=== PATIENT | male | born 1950 | race Caucasian/White ===

== ENCOUNTER 2016-07-26 13:18 | Outpatient (CLI) | payer MEDICARE, OTHER ==
[~2016-07-26] VITALS: Ht 185.4 cm; Wt 136.6 kg
[2016-07-26 13:33] VITALS: BP 110/63
[2016-07-26] MEDS ORDERED: OMEG-131 PO (13:46)
[2016-07-26] MEDS ORDERED: DOXA4TAB2 PO (13:46)
[2016-07-26] MEDS ORDERED: MULT-851 PO (13:46)
[2016-07-26] MEDS ORDERED: ASPI-586 PO (13:46)
[2016-07-26] MEDS ORDERED: GARL10002 PO (13:46)
[2016-07-26] MEDS ORDERED: BNZ40T PO (13:46)
[2016-07-26] MEDS ORDERED: CAYE450C4 PO (13:46)
[2016-07-26] MEDS ORDERED: UBID100C17 PO (13:46)
[2016-07-26] MEDS ORDERED: AMLO10TA2 PO (13:46)
[2016-07-26] MEDS ORDERED: ATOR40TA70 PO (13:46)
[2016-07-26] MEDS ORDERED: SPIR25TA3 PO (13:46)
[2016-07-26] MEDS ORDERED: ASCO-262 PO (13:46)
[2016-07-26] MEDS ORDERED: LACT1CAP74 PO (13:46)
[2016-07-26] MEDS ORDERED: IRON18TA PO (13:46)
[2016-07-26] MEDS ORDERED: LECI12002 PO (13:46)
[2016-07-26] MEDS ORDERED: POTA20TA8 PO (13:46)
[2016-07-26] MEDS ORDERED: TURM500C4 PO (13:46)
[2016-07-26] MEDS ORDERED: LUTE20TA PO (13:46)
[2016-07-26] MEDS ORDERED: CALC-79 PO (13:46)
== END 2016-07-26 13:55 | disposition home or self-care (01) ==
LOC: PREOP 13:18
PROVIDERS: ATTEND Urology
DX: Z01.818 Encounter for other preprocedural examination (principal); Z11.2 Encounter for screening for other bacterial diseases; N20.1 Calculus of ureter
CPT/HCPCS: 87081

== ENCOUNTER → 2016-07-26 | Outpatient (CLI) | payer MEDICARE, OTHER ==
[~2016-07-26] MED LIST: AMLO10TA2 PO; ASCO-262 PO; ASPI-586 PO; ATOR40TA70 PO; BNZ40T PO; CALC-79 PO; CAYE450C4 PO; CIPR-225 PO; DOXA4TAB2 PO; GARL10002 PO; HYDR-3875 PO; HYDR-3876 PO; IRON18TA PO; LACT1CAP74 PO; LECI12002 PO; LEVO500T2 PO; LUTE20TA PO; MULT-851 PO; OMEG-131 PO; PHEN-640 PO; POTA20TA8 PO; SPIR25TA3 PO; TAMS0.4C98 PO; TURM500C4 PO; UBID100C17 PO
--- OUTSIDE RECORDS SUMMARY | 2016-07-26 09:41 | XMS REPORT ---
Author Author [facility] Organization [facility] Address [address] [place] [id number] Phone [phone] Summary purpose CCDA Sent to [facility] Chief Complaint and Reason for Visit Admit Diagnosis 1 JOINT PAIN-PELVIS Problem list No authorized problems tracked for continuity of care are available for this visit. Encounters No authorized problems tracked for encounter diagnoses are available for this visit. Medications No home medications recorded for this patient visit Allergies, adverse reactions, alerts No allergy information is available for this patient. Immunizations No immunizations recorded for this patient visit Relevant diagnostic tests and/or laboratory data No authorized results are available for this patient visit History of procedures Procedure Code Code Type Description Date Performed Performing Physician 50034 CPT-4 X-RAY EXAM OF HIP 04-08-2014 JARETH FRANK 76805 CPT-4 X-RAY EXAM OF PELVIS 04-08-2014 JARETH FRANK Functional status No functional or cognitive status observations are available for this visit. Vital signs No authorized vital signs are available for this visit. Social history No Social History or smoking status observations were recorded for this visit. ( Unknown if ever smoked.) Treatment Plan No treatment plan text is available for this visit. Hospital discharge instructions No discharge instruction text is available for this visit.
--- NOTE | 2016-07-26 10:58 | Diagnostic Imaging Report ---
INDICATION: Right flank pain. EXAMINATION: KUB. FINDINGS: There are degenerative changes in the lumbar spine. The bowel gas pattern is normal. There are no radiopaque calculi seen. The patient has had left hip arthroplasty. IMPRESSION: No acute abnormalities in the abdomen. Dictated by: Dictated on workstation # [id number]
== END ==
LOC: RAD 09:38
PROVIDERS: ATTEND Urology
DX: N20.1 Calculus of ureter (principal)
CPT/HCPCS: 74000

== ENCOUNTER 2016-08-03 07:00 | Day surgery (SDC) | payer MEDICARE, OTHER ==
[~2016-08-03] VITALS: Ht 185.4 cm; Wt 136.6 kg
[2016-08-03 07:00] VITALS: BP 148/79
[~2016-08-03 07:00] MED LIST changes: -CIPR-225 PO; -HYDR-3875 PO; -HYDR-3876 PO; -LEVO500T2 PO; -PHEN-640 PO; -TAMS0.4C98 PO
[2016-08-03] MEDS ORDERED: CATHETER FLUSH 10 ML SYR IV PRN (07:30)
[2016-08-03] MEDS ORDERED: cefTRIAXone 1 GM/NS 50 ML IVPB IV ONE ×2 (07:30)
--- NOTE | 2016-08-03 07:44 | Diagnostic Imaging Report ---
INDICATION: Pre-left ESWL. COMPARISON STUDIES: KUB from July 26. FINDINGS: Several small calculi are seen overlying the left kidney. Largest one measures just over 5 mm. Some degenerative changes present in the spine and right hip. Postoperative changes are present in the left hip. Bowel gas pattern appears normal. IMPRESSION: There are calcifications overlying the left kidney measuring up to 5 mm. Dictated by: Dictated on workstation # [id number]
[2016-08-03] MEDS: LACTATED RINGERS 1,000 ML IV PRN ×2 (07:45→09:29)
--- NOTE | 2016-08-03 07:56 | Progress Note-Pre Operative ---
Pre-Operative Progress Note H&P Reviewed The H&P was reviewed, patient examined and no changes noted. Date H&P Reviewed: Aug 03, 2016 Time H&P Reviewed: 07:56 Pre-Operative Diagnosis: LT UPJ STONE TIGRE LARES MD Aug 03, 2016 7:56 am
--- NOTE | 2016-08-03 07:57 | Progress Note-Post Operative ---
Post-Operative Progess Note Surgeon (s)/Measurement Psychologist (s) Surgeon TIGRE LARES MD Measurement Psychologist: N/A Pre-Operative Diagnosis LT UPJ STONE Post-Operative Diagnosis LT CALYCEAL STONE Post-Op Procedure Note Date of Procedure: Aug 03, 2016 Name of Procedure Performed: CYSTOSCOPY, LT RETROGRADE UROGRAM, AND LT ESWL Description of the Procedure: ABOVE Findings of the Procedure LT UPJ STONE MIGRATED TO MID CALYX Anesthesia Type GENERAL Estimated blood loss (mL): N/A Specimen(s) collected/removed N/A TIGRE LARES MD Aug 03, 2016 7:57 am
--- NOTE | 2016-08-03 07:59 | Discharge Inst-Urology ---
Discharge Inst-Urology Discharge Medications New, Converted, or Re-newed RX: RX on Chart Patient Instructions/Follow Up Plan Please make appointment to been seen in office TUESDAY 08/15. KUB PRIOR TO IT KUB ON WAY HOME POST ESWL INSTRUCTIONS Increase oral fluids for 48 hours and then as needed. Diet and Activity as tolerated. If questions or concerns contact your physician Or seek help at emergency department. TIGRE LARES MD Aug 03, 2016 7:59 am
[2016-08-03] MEDS ORDERED: MIDAZOLAM 2 MG/2 ML (VERSED) VIAL ONE (08:03)
[2016-08-03] MEDS ORDERED: LIDOCAINE PF 2% 10 ML (XYLOCAINE) AMP ONE (08:03)
[2016-08-03] MEDS ORDERED: fentaNYL INJECTION 100 MCG/2 ML AMP ONE (08:03)
[2016-08-03] MEDS ORDERED: ROCURONIUM 50 MG/5 ML (ZEMURON) VIAL IV ONE (08:03)
[2016-08-03] MEDS ORDERED: proPOfol 200 MG/20 ML (DIPRIVAN) VIAL IV ONE ×2 (08:03→11:07)
[2016-08-03] MEDS ORDERED: DEXAMETHASONE PF 10 MG/ML (DECADRON) VIAL ONE (08:03)
[2016-08-03] MEDS ORDERED: SEVOFLURANE (ULTANE) 15 ML INHAL SOLN ONE ×2 (08:03→11:07)
[2016-08-03] MEDS ORDERED: ONDANSETRON 4 MG/2 ML (SDV) Z0FRAN ONE (08:03)
[2016-08-03] MEDS ORDERED: LACTATED RINGERS 1,000 ML IV ONE ×2 (08:03→11:07)
[2016-08-03] MEDS ORDERED: FUROSEMIDE 40 MG/4 ML INJ (LASIX) ONE (08:53)
[2016-08-03] MEDS ORDERED: KETOROLAC 30 MG/ML VIAL ONE (08:53)
[2016-08-03 10:40] VITALS: BP 154/96
[2016-08-03 11:10] VITALS: BP 168/90
[2016-08-03 11:45] VITALS: BP 147/73
[2016-08-03] MEDS ORDERED: PHEN-640 PO (12:03)
[2016-08-03] MEDS ORDERED: TAMS0.4C98 PO (12:03)
[2016-08-03] MEDS ORDERED: LEVO500T2 PO (12:03)
[2016-08-03] MEDS ORDERED: HYDR-3876 PO (12:03)
[2016-08-03 12:35] VITALS: BP 147/73
--- NOTE | 2016-08-03 13:54 | Diagnostic Imaging Report ---
INDICATION: Postop ESWL. COMPARISON: 08/03/2016. FINDINGS: There are some small radiopacities and calcifications projecting over the left kidney. Previously, the largest of these measured 5.2 mm. Now the largest is about 3 mm and may be partially fragmented. Evaluation is limited by the unprepped stool-containing overlying bowel. Pelvic phleboliths unchanged. IMPRESSION: Apparent fragmentation of left renal stone burden. No adverse development apparent. Dictated by: Dictated on workstation # [id number]
--- NOTE | 2016-08-04 08:25 | OPERATIVE REPORT ---
PROCEDURE PHYSICIAN: TIGRE LARES DATE OF PROCEDURE: 08/03/2016 PREOPERATIVE DIAGNOSIS: Left UPJ stone. POSTOPERATIVE DIAGNOSIS: Left calyceal stone. OPERATION PERFORMED: 1. Cystoscopy. 2. Left retrograde urogram. 3. Left ESWL. SURGEON: Dr. Lares. ANESTHESIA: General. COMPLICATIONS: None. PROCEDURE: Under satisfactory general anesthesia, the patient in lithotomy position on the cysto table, the genitalia were prepped and draped in usual sterile fashion. A 23-Libyan cystoscope was introduced under vision. 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 The prostate was enlarged causing bladder neck obstruction and trabeculation and displacement of the ureter upward and laterally. Using the Foroblique lens, I, passed a 5-Libyan ureteral catheter into the right ureteral orifice, passed it all the way up to the left renal pelvis with no obstruction whatsoever, guided fluoroscopically. I injected contrast and I could see the stone with a filling defect into the mid calyx where the stone apparently migrated from the UPJ. We left the ureteral catheter in, moved the patient to the ESWL table and with some injection contrast, we were able to fragment the stone with a total of 3000 shocks at KV of 5. The patient received 40 mg of Lasix and 30 mg of Toradol IV at the end of the procedure. He tolerated the procedure and anesthesia well and was sent to the recovery room in stable condition. Job ID: [id number] Dictated Date: 08/03/2016 09:33:41 Warehouse Team Member Date: 08/03/2016 21:46:32 / home
--- OUTSIDE RECORDS SUMMARY | 2016-08-21 05:51 | XMS REPORT ---
Author Author [facility] Medical Staff Organization [facility] Address [address] [place] [place] [id number] Phone [phone] Summary purpose CCDA Sent to [facility] Chief Complaint and Reason for Visit Admit [...] Code Type Description Date Performed Performing Physician 88888 CPT-4 X-RAY EXAM OF HIP 04-08-2014 JARETH FRANK 29170 CPT-4 X-RAY EXAM OF PELVIS 04-08-2014 JARETH [...]
--- OUTSIDE RECORDS SUMMARY | 2016-08-21 05:51 | XMS REPORT ---
Author Author [facility] Medical Staff Organization [facility] Address [address] [place] [id number] Phone [phone] Summary purpose CCDA Sent to [facility] Chief Complaint and Reason for Visit No authorized Reason for Visit (Admitting Diagnosis) is available for this visit. Problem list No authorized problems tracked for [...] for this patient visit History of procedures No procedures recorded for this patient visit. Functional status No functional or cognitive status [...]
--- OUTSIDE RECORDS SUMMARY | 2016-08-21 05:51 | XMS REPORT | Continuity of Care Document ---
Author Author [facility] Address Unknown Phone Unavailable Allergies Medications Problems Procedures Results Encounters ACCT No. Visit Date/Time Discharge Status Pt. Type Provider Facility Loc./Unit Complaint [id number] 07/31/2014 18:44:25 07/31/2014 23: 59:59 CLS Outpatient Ivone Mancuso
== END 2016-08-03 12:35 | disposition home or self-care (01) ==
LOC: DELPENDDIS → SDC 07:00
PROVIDERS: ATTEND Urology
DX: N20.0 Calculus of kidney (principal)
CPT/HCPCS: 74000

== ENCOUNTER → 2016-08-15 | Outpatient (CLI) | payer MEDICARE, OTHER ==
[~2016-08-15] MED LIST changes: +CIPR-225 PO; +HYDR-3875 PO; +HYDR-3876 PO; +LEVO500T2 PO; +PHEN-640 PO; +TAMS0.4C98 PO
--- NOTE | 2016-08-15 15:22 | Diagnostic Imaging Report ---
EXAMINATION: KUB. INDICATION: Left ureteric stone. FINDINGS: There are up to 5 mm calcific fragments seen in the left flank. There is a 1 cm hyperdensity projecting over the transverse process of L4 on the left side raising the question of a ureteric stone, possibly from prior fragmentation of left kidney stones. The pelvic calcifications are likely phleboliths. A left hip prosthesis is seen. IMPRESSION: 1. There are left flank calcifications measuring up to 5 mm, compatible with left kidney stones. 2. Density projecting over the left L4 transverse process raises the question of a possible left ureteric stone but is not definitive. Followup exams or CT would be helpful as clinically indicated. Dictated by: Dictated on workstation # [id number]
== END ==
LOC: RAD 13:53
PROVIDERS: ATTEND Urology
DX: N20.0 Calculus of kidney (principal); Z98.890 Other specified postprocedural states
CPT/HCPCS: 74000

== ENCOUNTER → 2016-09-01 | Outpatient (CLI) | payer MEDICARE, OTHER ==
[~2016-09-01] MED LIST changes: +CATHETER FLUSH 10 ML SYR IV PRN; +IOHEXOL 350 MG/ML 100 ML (OMNIPAQUE 350) VIAL IV ONE; +NS 100 ML (IVPB) BAG IV ONE
--- NOTE | 2016-09-01 13:40 | Diagnostic Imaging Report ---
PROCEDURE: CT abdomen and pelvis with contrast. TECHNIQUE: Multiple contiguous axial images were obtained through the abdomen and pelvis after administration of intravenous contrast. INDICATION: Prostate cancer. FINDINGS: There are degenerative changes in the thoracic the lumbar spine but there are no osteoblastic or osteolytic lesions seen. Patient has had prior left hip arthroplasty. Lung bases are clear. Liver appears normal. The gallbladder is present. Pancreas appears normal. Spleen is not enlarged. There is no hydronephrosis of the left kidney. There is a 6 mm stone in the left mid ureter. There is a 2 mm calculus in an inferior pole calyx of the right kidney. Urinary bladder is normal. Prostate is not enlarged. Seminal vesicles are normal. There is no pelvic lymphadenopathy seen. IMPRESSION: Small nonobstructing calculus in lower pole calyx of right kidney. A 6 mm obstructing calculus in left mid ureter. Dictated by: Dictated on workstation # [id number]
--- NOTE | 2016-09-01 16:35 | Diagnostic Imaging Report ---
INDICATION: Prostate cancer. EXAM: Whole body bone scan. TECHNIQUE: 27 mCi of technetium 99m MDP was given intravenously. Whole body bone scan was obtained after an appropriate delay. FINDINGS: There is activity seen in both kidneys as well the bladder. There were degenerative changes of the right knee in the patellofemoral and tibiofemoral joint spaces. There is minimal arthritic change in the medial compartment of the left knee. There is no increased activity in the skeletal system that is considered suspicious for metastatic disease. IMPRESSION: Whole body bone scan does not show any findings suspicious for metastatic disease. Dictated by: Dictated on workstation # [id number]
== END ==
LOC: CARD 07:54
PROVIDERS: ATTEND Urology
DX: C61 Malignant neoplasm of prostate (principal)
CPT/HCPCS: 74177; 78306

== ENCOUNTER → 2016-09-05 | Outpatient (CLI) | payer MEDICARE, OTHER ==
[~2016-09-05] MED LIST changes: -CATHETER FLUSH 10 ML SYR IV PRN; -IOHEXOL 350 MG/ML 100 ML (OMNIPAQUE 350) VIAL IV ONE; -NS 100 ML (IVPB) BAG IV ONE
--- NOTE | 2016-09-05 14:18 | Diagnostic Imaging Report ---
EXAMINATION: KUB. INDICATION: Right renal and left ureteric stones. COMPARISON: Correlation is made with the CT scan of 09/01/2016. FINDINGS: The previously seen calcification projecting over the left L4 transverse process is less prominent at this time and there is question of a calcification seen at the mid left sacral ala level. This raises the question of stone progression into the mid left ureter. Calcifications in the pelvis are likely phleboliths. There is no definitive kidney stone seen. IMPRESSION: There is a 6 mm calcific density projecting over the mid left sacral ala which may represent mid left ureteric stone progression. Dictated by: Dictated on workstation # [id number]
== END ==
LOC: RAD 13:28
PROVIDERS: ATTEND Urology
DX: R93.49 Abnormal radiologic findings on diagnostic imaging of other urinary organs (principal); Z87.442 Personal history of urinary calculi
CPT/HCPCS: 74000

== ENCOUNTER 2016-09-09 09:01 | Outpatient (CLI) | payer MEDICARE, OTHER ==
[~2016-09-09] VITALS: Ht 185.4 cm; Wt 136.6 kg
[~2016-09-09 09:01] MED LIST changes: -CIPR-225 PO; -HYDR-3875 PO
== END 2016-09-09 12:13 ==
LOC: PREOP 09:01
PROVIDERS: ATTEND Urology
DX: Z01.818 Encounter for other preprocedural examination (principal); N20.1 Calculus of ureter

== ENCOUNTER 2016-09-13 07:48 | Day surgery (SDC) | payer MEDICARE, OTHER ==
[~2016-09-13] VITALS: Ht 185.4 cm; Wt 136.6 kg
[2016-09-13] MEDS ORDERED: cefTRIAXone 1 GM (ROCEPHIN) VIAL ONE (08:19)
[2016-09-13] MEDS ORDERED: NS (IVPB) 50 ML ONE (08:19)
[2016-09-13 08:30] VITALS: BP 133/68
[2016-09-13] MEDS ORDERED: CATHETER FLUSH 10 ML SYR IV PRN (08:30)
[2016-09-13] MEDS ORDERED: cefTRIAXone 1 GM/NS 50 ML IVPB IV ONE ×2 (08:30)
[2016-09-13] MEDS ORDERED: LIDOCAINE PF 2% 10 ML (XYLOCAINE) AMP ONE (08:39)
[2016-09-13] MEDS ORDERED: LACTATED RINGERS 1,000 ML IV ONE ×2 (08:39→10:08)
[2016-09-13] MEDS ORDERED: ROCURONIUM 50 MG/5 ML (ZEMURON) VIAL IV ONE (08:39)
[2016-09-13] MEDS ORDERED: ONDANSETRON 4 MG/2 ML (SDV) Z0FRAN ONE (08:39)
[2016-09-13] MEDS ORDERED: proPOfol 200 MG/20 ML (DIPRIVAN) VIAL IV ONE (08:39)
[2016-09-13] MEDS ORDERED: fentaNYL INJECTION 100 MCG/2 ML AMP ONE (08:40)
[2016-09-13] MEDS ORDERED: MIDAZOLAM 2 MG/2 ML (VERSED) VIAL ONE (08:40)
--- NOTE | 2016-09-13 08:46 | Progress Note-Pre Operative ---
Pre-Operative Progress Note H&P Reviewed The H&P was reviewed, patient examined and no changes noted. Date H&P Reviewed: September 13, 2016 Time H&P Reviewed: 08:46 Pre-Operative Diagnosis: LT MID URETERAL STONE TIGRE LARES MD September 13, 2016 8:46 am
--- NOTE | 2016-09-13 08:47 | Progress Note-Post Operative ---
Post-Operative Progess Note Surgeon (s)/Packing Machine Tender (s) Surgeon TIGRE LARES MD Packing Machine Tender: N/A Pre-Operative Diagnosis LT MID URETERAL STONE Post-Operative Diagnosis SAME Procedure & Operative Findings Date of Procedure 09/13/16 Procedure Preformed/Findings CYSTO, LT URETEROSCOPY, STONE MANIPULATION, RETROGRADE UROGRAM, LT URETERAL CATHETER, LT ESWL Anesthesia Type GENERAL Estimated Blood Loss Estimated blood loss (mL): N/A Specimens/Packing Specimens Removed N/A Packing: N/A TIGRE LARES MD September 13, 2016 8:47 am
--- NOTE | 2016-09-13 08:49 | Discharge Inst-Urology ---
Discharge Inst-Urology Discharge Medications New, Converted, or Re-newed RX: RX on Chart Patient Instructions/Follow Up Plan Please make appointment to been seen in office in [address] Post ESWL instructions Increase oral fluids for 48 hours and then as needed. Diet and Activity as tolerated. If questions or concerns contact your physician Or seek help at emergency department. TIGRE LARES MD September 13, 2016 8:49 am
--- NOTE | 2016-09-13 08:51 | Diagnostic Imaging Report ---
Clinical indication: Preop for left side stone. Exam: KUB x-ray. Comparison: KUB x-ray dated 09/05/2016. CT scan abdomen and pelvis performed with IV contrast dated 09/01/2016. Findings: The previously seen area concerning for left ureteral stone is not definitively seen on this exam. Left ureteral stone may be obscured by overlapping bone or soft tissue. There are stable phleboliths seen in the pelvis. There is a nonobstructed bowel gas pattern. There is no evidence of abdominal free air. There are hypertrophic spurs seen throughout the visualized thoracolumbar spine. Left hip arthroplasty and surgical clips overlying the left hip are seen. Impression: 1: The previously seen area suspected to represent a left ureteral stone overlying the left sacral ala is not definitively seen on this exam. CT scan would better evaluate if clinically necessary. 2: Stable phleboliths seen in the pelvis. 3: The remainder of this exam shows no significant interval change compared to the prior study of comparison. Dictated by: Dictated on workstation # [id number]
[2016-09-13] MEDS ORDERED: SEVOFLURANE (ULTANE) 15 ML INHAL SOLN ONE ×4 (09:11→10:17)
[2016-09-13] MEDS ORDERED: FUROSEMIDE 40 MG/4 ML INJ (LASIX) ONE (09:45)
[2016-09-13] MEDS ORDERED: KETOROLAC 30 MG/ML VIAL ONE (09:45)
[2016-09-13] MEDS ORDERED: morphine INJ 10 MG/ML 1ML (SYR OR VIAL) IVP PRN (10:45)
[2016-09-13] MEDS ORDERED: ONDANSETRON 4 MG/2 ML (SDV) Z0FRAN IVP PRN (10:45)
[2016-09-13] MEDS ORDERED: MEPERIDINE (DEMEROL) INJ 50 MG/ML IVP PRN (10:45)
--- NOTE | 2016-09-13 11:10 | OPERATIVE REPORT ---
DATE OF SERVICE: 09/13/2016 PREOPERATIVE DIAGNOSIS: Left mid ureteral stone. POSTOPERATIVE DIAGNOSIS: Left mid ureteral stone. OPERATIONS PERFORMED: Cystoscopy, left ureteroscopy, stone manipulation, retrograde ureterogram, insertion of a left ureteral catheter and left ESWL. SURGEON: Jarrod Lares MD ANESTHESIA: General. COMPLICATIONS: None. DESCRIPTION OF PROCEDURE: Under satisfactory general anesthesia, the patient was placed in lithotomy position, genitalia prepped and draped in usual sterile fashion. Cystoscope was introduced under direct visualization. The anterior urethra was normal. The prostate was enlarged, causing bladder neck obstruction and upward natural migration of the urethral orifices, together with trabeculation with cellules. Using the 4 oblique lines, I dilated the left urethral orifice to evaluate the stone and could see faintly what look liked a stone just proximal to the tip of the urethral catheter. I tried to bypass it, tried to push it, but could not do that, so I left the urethral catheter just as it was in place, abutting on the stone and removed the cystoscope and inserted the Lindo catheter and tipped it to the urethral catheter. We moved the patient to the ESWL table and the stone again was visualized at the tip of the urethral catheter. We delivered 2000 shocks and the stone was seen very faintly. We injected some contrast and the contrast was flowing easily up to the kidney. There was no filling defect at the area where the stone was. There was, however, a questionable filling defect more distal to the catheter, stone versus air bubble. I was not able to localize it. Delivered shocks in of 6 for another 1000 shock and injected contrast again. That filling defect disappeared. There was a small filling defect from free fragment from ESWL effect. I then got the urethral catheter, injected contrast. It was flowing nicely through the kidney and emptying very well with no obstruction and no significant filling defect at all. We removed the Lindo catheter. The patient received 30 mg of Toradol and 40 mg of Lasix at the end of the procedure. He tolerated the procedure and anesthesia well and was sent to recovery room in stable condition. Job ID: [id number] DocumentID: [id number] Dictated Date: 09/13/2016 10:23:01 Water Service Supervisor Date: 09/13/2016 11:10:23 Dictated By: JARROD LARES MD
[2016-09-13 11:20] VITALS: BP 128/80
[2016-09-13] MEDS ORDERED: PHENAZOPYRIDINE 100 MG (PYRIDIUM) TABLET PO ONE (11:30)
[2016-09-13] MEDS ORDERED: HYDR-3875 PO (11:49)
[2016-09-13] MEDS ORDERED: CIPR-225 PO (11:49)
[2016-09-13] MEDS ORDERED: PHEN-640 PO (11:49)
[2016-09-13] MEDS ORDERED: TAMS0.4C98 PO (11:49)
[2016-09-13 11:50] VITALS: BP 135/70
[2016-09-13 12:20] VITALS: BP 127/67
--- NOTE | 2016-09-13 12:30 | Diagnostic Imaging Report ---
INDICATION: Post ESWL on the left. COMPARISON STUDY: KUB from 09/13/2016. FINDINGS: A supine view of the abdomen demonstrates a 13 mm crescent shaped calculus overlying the left kidney. No other calculi are seen. Degenerative changes are present in the spine, mainly at L5-S1. Degenerative changes are present in the right hips, symphysis, and symphysis pubis. Post operative changes are present in the left hip. IMPRESSION: There is a 13 mm crescent-shaped calculus overlying the left kidney. Dictated by: Dictated on workstation # [id number]
[2016-09-13 12:40] VITALS: BP 127/67
== END 2016-09-13 12:40 | disposition home or self-care (01) ==
LOC: SDC 07:48
PROVIDERS: ATTEND Urology
DX: N20.1 Calculus of ureter (principal); I10 Essential (primary) hypertension; Z79.899 Other long term (current) drug therapy
CPT/HCPCS: 74000; 87081

== ENCOUNTER → 2016-09-26 | Outpatient (CLI) | payer MEDICARE, OTHER ==
[~2016-09-26] MED LIST changes: +CIPR-225 PO; +HYDR-3875 PO
--- NOTE | 2016-09-26 14:30 | Diagnostic Imaging Report ---
KUB. INDICATION: Left ureteric stone. COMPARISON: 09/13/2016. FINDINGS: The previously seen curvilinear calcification over the left flank is not clearly visualized. There is a faint density in the left flank measuring 1.6 cm. This is uncertain whether it represents a stone or is related to a fecalith. No definite ureteric stone. Calcifications of the pelvis are likely phleboliths. There is left hip replacement and adjacent surgical clips. IMPRESSION: Faint density measuring 1.6 cm in the left flank is favored to be a fecalith rather than a left renal pelvis stone. Dictated by: Dictated on workstation # [id number]
== END ==
LOC: RAD 13:47
PROVIDERS: ATTEND Urology
DX: N20.1 Calculus of ureter (principal)
CPT/HCPCS: 74000